=== PATIENT | male | born 1945 | race Caucasian/White ===

== ENCOUNTER 2019-01-17 11:05 | Emergency (ER) | payer OTHER, BC ==
[~2019-01-17] VITALS: Ht 170.2 cm; Wt 79.4 kg
[2019-01-17 11:12] VITALS: Ht 170.2 cm; Wt 79.4 kg
[2019-01-17 12:24] LABS: BASOPHIL % 0.1 % (0-2); PLATELET COUNT 200 x10^3mcL (130-400)
[2019-01-17 12:33] LABS: ALKALINE PHOSPHATASE 64 U/L (46-116); ALT/SGPT 15 U/L (16-63); AST/SGOT 16 U/L (15-37); BILIRUBIN TOTAL 0.45 mg/dL (0.20-1.00); CARBON DIOXIDE 30.6 mmol/L (21-32); CHLORIDE SERUM 105 mmol/L (98-107); CREATININE SERUM 1.1 mg/dL (0.7-1.3); HDL CHOLESTEROL 40 mg/dL (40-60); LIPASE 23 IU/L (73-393); POTASSIUM SERUM 4.5 mmol/L (3.5-5.1); SODIUM SERUM 142 mmol/L (136-145)
[2019-01-17 12:34] LABS: RED CELL DISTRIBUTION WIDTH 14.8 % (11.5-14.5)
[2019-01-17 12:41] LABS: microscopic required? NO
[2019-01-17 12:46] LABS: CALCIUM 8.7 mg/dL (8.5-10.1); GLUCOSE SERUM 132 mg/dL (74-106)
[2019-01-17 12:47] LABS: ALBUMIN 3.1 g/dL (3.4-5.0); CHOLESTEROL 110 mg/dL (<200)
[2019-01-17 12:59] LABS: UA SPECIFIC GRAVITY 1.025 (1.005-1.035); urine erythrocyte NEGATIVE (NEGATIVE)
[2019-01-17 13:07] LABS: AMPHETAMINE QUAL UR NONE DETECTED (See below)
[2019-01-17 15:10] VITALS: BP 102/68
== END 2019-01-17 15:10 | disposition home or self-care (01) ==
LOC: ED 11:05
PROVIDERS: Emergency Medicine
DX: K44.9 Diaphragmatic hernia without obstruction or gangrene (principal); K80.20 Calculus of gallbladder without cholecystitis without obstruction; K57.32 Diverticulitis of large intestine without perforation or abscess without bleeding; E46 Unspecified protein-calorie malnutrition; D64.9 Anemia, unspecified; E03.9 Hypothyroidism, unspecified; E78.00 Pure hypercholesterolemia, unspecified; Z90.49 Acquired absence of other specified parts of digestive tract; Z88.8 Allergy status to other drugs, medicaments and biological substances
CPT/HCPCS: 83880; J1885; J2405; J3010; J7030; Q0092